=== PATIENT | female | born 1990 | race Caucasian/White ===

== ENCOUNTER 2017-08-06 08:12 | Emergency (ER) | payer SELFPAY ==
[~2017-08-06] VITALS: Ht 167.6 cm; Wt 46.0 kg
[~2017-08-06 08:12] MED LIST: PROM25SU8 PO
[2017-08-06 08:13] VITALS: BP 107/69; PULSE 92; RESP 18; TEMP 99.3; O2SAT 97
--- NOTE | 2017-08-06 08:36 | PD ---
HPI Chief Complaint: ENT Complaint Time Seen by Provider: 08:25 Travel History International Travel<30 days: No Contact w/Intl Traveler<30days: No Traveled to known affect area: No History of Present Illness HPI This 26-year-old female is complaining of fever, sore throat and cough. She's been sick for about a week. She does smoke cigarettes. When she coughs she has a lot of pain in the right posterior rib area. She has had diarrhea for the last couple of days. She does have a lot of myalgias. She thinks she was exposed to somebody with a upper respiratory infection on . Her last period was 2 weeks ago and she has not been sexually active since then [facility] Past Medical History Medical History: Denies Significant Hx Diminished Hearing: No Immunizations Current: Yes Influenza Vaccination: No ?: Unknown LMP: 2 weeks ago : 0 Past Surgical History Surgical History: No Previous Surgery Social History Alcohol Use: Yes (ONCE WEEKLY) Tobacco Use: Yes (07/31 PPD) Substance Use: No Allergies-Medications (Allergen,Severity, Reaction): Coded Allergies: acetaminophen (Unverified Allergy, Severe, RASH, 08/06/17) codeine (Unverified Allergy, Severe, HIVES, 08/06/17) hydrocodone (Unverified Allergy, Severe, RASH, 08/06/17) Reported Meds & Prescriptions Reported Meds & Active Scripts Active No Active Prescriptions or Reported Medications Review of Systems General / Constitutional: Positive: Fever, Chills Eyes: No: Diploplia HENT: Positive: Sore Throat Cardiovascular: Positive: Chest Pain or Discomfort Respiratory: Positive: Cough Gastrointestinal: Positive: Diarrhea, No: Nausea, Vomiting Genitourinary: No: Urgency, Frequency Musculoskeletal: No: Myalgias, Arthralgias Skin: No Rash Endocrine: No: Heat Intolerance, Cold Intolerance Hematologic/Lymphatic: No: Easy Bruising Physical Exam Narrative GENERAL: Well-developed female SKIN: Focused skin assessment warm/dry. HEAD: Atraumatic. Normocephalic. EYES: Pupils equal and round. No scleral icterus. No injection or drainage. ENT: No nasal bleeding or discharge. Mucous membranes pink and moist. NECK: Trachea midline. No JVD. CARDIOVASCULAR: Regular rate and rhythm. No murmur appreciated. RESPIRATORY: No accessory muscle use. There are occasional rhonchi. She has some tenderness in the right lateral posterior chest. She has a harsh persistent cough GASTROINTESTINAL: Abdomen soft, non-tender, nondistended. Hepatic and splenic margins not palpable. MUSCULOSKELETAL: No obvious deformities. No clubbing. No cyanosis. No edema. NEUROLOGICAL: Awake and alert. No obvious cranial nerve deficits. Motor grossly within normal limits. Normal speech. PSYCHIATRIC: Appropriate mood and affect; insight and judgment normal. Data Data Last Documented VS Vital Signs Date Time Temp Pulse Resp B/P (MAP) Pulse Ox O2 Delivery O2 Flow Rate FiO2 08/06/17 08:13 99.3 92 18 107/69 (82) 97 Orders Orders Chest, Pa & Lat (08/06/17 08:31) MDM Medical Decision Making Medical Screen Exam Complete: Yes Emergency Medical Condition: Yes Medical Record Reviewed: Yes Differential Diagnosis Differential includes pneumonia, rib fracture, influenza, viral syndrome Narrative Course Chest x-ray shows small patchy infiltrates consistent with pneumonia. Patient is stable for outpatient treatment. She'll be put on Zithromax Diagnosis Primary Impression: Pneumonia Qualified Codes: J18.9 - Pneumonia, unspecified organism Additional Instructions: Take Tylenol for fever, force fluids, return if shortness of breath, vomiting Scripts Benzonatate (Tessalon Perles) 100 Mg Cap 200 MG PO TID Y for COUGH, #12 CAP 0 Refills Prov: Tal Iglesias MD 08/06/17 Azithromycin (Zithromax Z-Jaziel) 250 Mg Dspk 250 MG PO DIRECTED for Infection, #1 DSPK 0 Refills 500 MG (2 tabs) day 1, then 1 tab days 2-5. Prov: Tal Iglesias MD 08/06/17 Disposition: 01 DISCHARGE HOME Condition: Stable Tal Iglesias MD Aug 06, 2017 08:36
--- NOTE | 2017-08-06 09:24 | RADRPT ---
EXAM DATE/TIME: 08/06/2017 08:47 [facility] COMPARISON: No previous studies available for comparison. INDICATIONS : Cough, short of breath, right side rib pain starts posterior and wraps around to front. MEDICAL HISTORY : None. SURGICAL HISTORY : None. ENCOUNTER: Initial ACUITY: 1 week PAIN SCORE: 7/10 LOCATION: Right chest FINDINGS: PA and lateral views of the chest were obtained and demonstrate mild patchy perihilar and bibasilar o pacities with no focal consolidation. There is no effusion. The cardiomediastinal contours are unrema rkable. Osseous structures are intact. CONCLUSION: Mild bilateral patchy perihilar and bibasilar opacities most characteristic of pneumo jennifer. Nico Christian MD on August 06, 2017 at 9:21 Board Certified Radiologist. This report was verified electronically.
[2017-08-06] MEDS ORDERED: ZITHTAB PO (09:30)
[2017-08-06] MEDS ORDERED: BENZ100 PO (09:30)
== END 2017-08-06 09:42 | disposition home or self-care (01) ==
LOC: PHEFT 08:12
DX: J18.9 Pneumonia, unspecified organism (principal); R07.0 Pain in throat; R19.7 Diarrhea, unspecified; M79.1 Myalgia; F17.200 Nicotine dependence, unspecified, uncomplicated
CPT/HCPCS: 71046; 99284